=== PATIENT | male | born 1990 | race Caucasian/White ===

== ENCOUNTER 2025-03-01 08:58 | Outpatient (AMB) | payer OTHER, SELFPAY ==
--- NOTE | 2025-03-01 09:11 | MHC.PC.OV ---
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 Accompanied by: Self / Same As Patient Allergies No Known Allergies Allergy (Verified 03/01/25 09:32) Medication List - Last Reconciled 03/01/25 by Yuliana Krishnan PA-C No Known Home Meds Tobacco use date assessed: 03/01/25 Dental Screening Dental Screen Date: 03/01/25 Did you have a dental visit in the last 12 months?: No Did you have a dental problem in the last 6 months where you did not have access to dental care?: No HPI establish care HPI Details 34-year-old male with no significant past medical history or surgical history who was not on any medications presenting to the primary care clinic for his 1st appointment to establish a new primary care and for an annual physical examination. He reports he has not seen a primary care in quite some time since he was younger or before [facility]. He denies any acute complaints. Reports that he will be traveling to [facility] later this month and would like something for motion sickness. He reports that he takes Dramamine without any symptomatic relief. He would like to try something that he has not taken in the past. Patient reports his mother has autoimmune disorder Sjogren's disease. Maternal grandmother had rheumatoid arthritis. Patient reports father has hyperlipidemia. Patient reports paternal grandfather with some type of bone cancer he believes it might be bone marrow cancer but it was in his leg and then he had a stroke shortly after the and years ago. Patient reports maternal grandfather has type 2 diabetes, hyperlipidemia. Patient would like to be tested for diabetes, autoimmune disorder, elevated cholesterol levels. He denies any family history of colon cancer, breast cancer prostate cancer. He denies any chest pain, shortness of breath with lying down flat or any activity, abdominal pain, nausea vomiting, diarrhea, unintentional weight gain or weight loss, black or bloody stools, leg swelling or any other symptoms complaints or concerns at this time. [facility] Medical History (Updated 03/01/25 @ 10:23 by Yuliana Krishnan PA-C) Annual physical exam Obesity with body mass index (BMI) of 30.0 to 39.9 Family history of diabetes mellitus Family history of Sjogren disease Establishing care with new doctor, encounter for Family History Father High cholesterol Mother High cholesterol H/O Sjogren's disease Paternal Grandfather Bone cancer Cerebellar stroke High cholesterol Maternal Grandmother Rheumatoid arthritis Maternal Grandfather Type 2 diabetes mellitus High cholesterol Social History Housing: House Alcohol intake: current Alcohol intake frequency: a few times a week Patient Tobacco Use Status: Never used Tobacco service: No Current occupational status: employed Cognitive needs: No Hearing needs: No Vision needs: Yes (rx glasses) Questionnaire PHQ-9 Over the last 2 weeks, how often have you been bothered by any of the following problems? 1. Little interest or pleasure in doing things: not at all 2. Feeling down, depressed, or hopeless: not at all 3. Trouble falling or staying asleep, or sleeping too much: not at all 4. Feeling tired or having little energy: not at all 5. Poor appetite or overeating: not at all 6. Feeling bad about yourself - or that you are a failure or have let yourself or your family down: not at all 7. Trouble concentrating on things, such as reading the newspaper or watching television: not at all 8. Moving or speaking so slowly that other people could have noticed. Or the opposite - being so fidgety or restless that you have been moving around a lot more than usual: not at all 9. Thoughts that you would be better off or of hurting yourself in some way: not at all Total score: 0 Depression Screening Interpretation: Negative Depression Screening Done: Yes 42613 - PHQ-9 Billing: Yes Source: Developed by Drs. Max Friedman, Paulina Wills, Gabriel Lorenz and colleagues, with an educational daija from [employer]. Thrive Questionnaire Date Thrive assessed: 03/01/25 I am a: Patient What is your living situation today?: I have a steady place to live Within the past 12 months, did the food you bought not last and you didn't have the money to get more?: Never true Within the past 12 months, did you worry whether your food would run out before you got money to buy more?: Never true Do you have trouble paying for medicines?: No Do you have trouble getting transportation to medical appointments?: No Do you have trouble paying your heating and electricity bill?: No Do you have trouble taking care of your child, family member or friend?: No Do you have trouble with day-to-day activities such as bathing, preparing meals, shopping, managing finances, etc.?: No Are you currently unemployed and looking for a job?: No Are you interested in more education?: No Please select the resources that you would like help with: None THRIVE Score: 0 AUDIT C Alcohol Use Questionnaire (AUDIT-C) 1. How often do you have a drink containing alcohol?: 4 or more times a week 2. How many drinks containing alcohol do you have on a typical day when you are drinking?: 1 or 2 3. How often do you have six or more drinks on one occasion?: Never Total Score: 4 Score Reviewed/Action Taken: No AMANDA-7 AMB Questionnaire AMANDA-7 Date AMANDA - 7 assessed: 03/01/25 Feeling nervous, anxious, or on edge: 0 = Not at all Not being able to stop or control worryin = Not at all Worrying too much about different things: 0 = Not at all Trouble relaxin = Not at all Being so restless that it is hard to sit still: 0 = Not at all Becoming easily annoyed or irritable: 0 = Not at all Feeling afraid as if something awful might happen: 0 = Not at all Total AMANDA-7 score (0-4 normal; 5-9 mild; 10-14 moderate; 15-21 severe): 0 Source: Developed by Drs. Max Friedman, Paulina Wills, Gabriel Lorenz and colleagues, with an educational daija from [employer]. AMANDA-7 Assessment Billing AMANDA-7 Assessment Tool: AMANDA-7 Assessment 85474 Review of Systems Const All systems reviewed & are unremarkable except as noted in HPI and below Physical exam (Primary Care) Vital Signs: Last Vital Signs Temp 97.6 F 03/01/25 09:14 Pulse 66 03/01/25 09:14 Resp 12 03/01/25 09:14 BP 137/84 06/10/25 09:14 Pulse Ox 99 03/01/25 09:14 Oxygen Delivery Method Room Air 03/01/25 09:14 Care Plan Goal for BP management: <140/90 at Goal BMI result Body Mass Index 30.5 BMI Assessment/Plan discussion: High BMI High, discussed plan: lifestyle, weight reduction, dietary, physical activity and alcohol moderation Tobacco/Smoking Status: Tobacco use Status Tobacco use date assessed 03/01/25 03/01/25 09:24 Patient Tobacco Use Status Never used Tobacco 03/01/25 09:24 PHQ-9: PHQ-9 Score PHQ-9: Total score 0 03/01/25 09:24 Depression Screening Interpretation: Negative Thrive Assessment: Date of Thrive Assessment Date Thrive assessed 03/01/25 03/01/25 09:24 Const Other: Appearance: Alert. Oriented X3. No acute distress. Head: Normal external exam. Normocephalic. Atraumatic. Eyes: Pupils are equal, round, and reactive to light. Extraocular movements intact. Conjunctiva and sclera normal. Eyelids normal. Ears: Right ear pain noted. External auditory canal normal. Tympanic membranes normal. Throat: Pharynx normal. Uvula midline. Moist mucous membranes. Neck: Normal inspection. Neck supple. Full range of motion. No adenopathy. Thyroid Normal. No meningeal signs. No neck mass noted. Cardiovascular: Normal heart rate and rhythm. Heart sound normal. No murmurs noted. Pulses normal throughout. Respiratory: No respiratory distress. Painless inspiration. Breath sounds normal. No wheezes/rales/rhonchi noted. Chest nontender. No accessory muscle usage noted or decreased air movement noted. Abdomen: Soft and nontender. Bowel sounds normal in all 4 quadrants. No distention noted. No organomegaly noted. No visible injury noted. Back: No costovertebral angle tenderness. Full range of motion noted. Skin: Skin warm and dry. Normal skin color. Normal skin turgor. No rashes/lesions/lacerations noted. Reports itchiness without rash. Extremities: No lower extremity edema. Extremities exhibit normal range of motion. Extremities nontender. Neuro: Oriented X 3. No motor deficit. No sensory deficit. Reflexes normal. Coding Level of Care Code Est Pt Level 4 (61803) New Pt Prev Care 18-39yr(60109 Diagnoses Establishing care with new doctor, encounter for Z76.89 Family history of Sjogren disease Z82.69 Family history of diabetes mellitus Z83.3 Obesity with body mass index (BMI) of 30.0 to 39.9 E66.9 Annual physical exam Z00.00 Additional Codes PHQ-9 - 79255 - PHQ-9 Billing: Yes ([id number]) AMANDA-7 Assessment Billing - AMANDA-7 Assessment Tool: AMANDA-7 Assessment 19263 ([id number]) Assessment & Plan Assessment & Plan (1) Establishing care with new doctor, encounter for: Code(s): Z76.89 - Persons encountering health services in other specified circumstances Category: Medical Plan: Patient denies any acute complaints. Would like to be tested for diabetes, elevated cholesterol due to family history and autoimmune disorders due to family history. Requesting medication for motion sickness. Currently on no medications no past medical history or surgical history. Denies any smoking or any drug usage. Drinks socially. (2) Family history of Sjogren disease: Code(s): Z82.69 - Family history of other diseases of the musculoskeletal system and connective tissue Category: Medical Plan: Will assess for autoimmune disorder which includes rheumatoid arthritis and SAULO. Will reassess. (3) Family history of diabetes mellitus: Code(s): Z83.3 - Family history of diabetes mellitus Category: Medical Plan: Will assess for diabetes with an A1c level. Will reassess (4) Obesity with body mass index (BMI) of 30.0 to 39.9: Code(s): E66.9 - Obesity, unspecified Category: Medical Plan: Patient to improve diet and exercise regimen. Condition is chronic and stable continue to monitor. (5) Annual physical exam: Code(s): Z00.00 - Encounter for general adult medical examination without abnormal findings Category: Medical Plan: Normal annual physical examination Plan Patient to have fasting labs Patient to return in 1 year Orders: Orders C Reactive Protein Today Z00.00 - Encounter for general adult medical examination without abnormal findings Complete Blood Count Auto Diff Today Z00.00 - Encounter for general adult medical examination without abnormal findings Comprehensive [place]. Panel Fast Today Z00.00 - Encounter for general adult medical examination without abnormal findings Lipid Panel Today Z00.00 - Encounter for general adult medical examination without abnormal findings Vitamin D 25-OH Total Today Z00.00 - Encounter for general adult medical examination without abnormal findings TSH reflex Free T4 Today Z00.00 - Encounter for general adult medical examination without abnormal findings Hemoglobin A1c Today Z00.00 - Encounter for general adult medical examination without abnormal findings Rheumatoid Factor Today Z82.69 - Family history of other diseases of the musculoskeletal system and connective tissue Liver Panel Today Z00.00 - Encounter for general adult medical examination without abnormal findings Magnesium Today Z00.00 - Encounter for general adult medical examination without abnormal findings Vitamin B12 and Folate Today Z00.00 - Encounter for general adult medical examination without abnormal findings PSA,Total (Free>4and<10) Today Z00.00 - Encounter for general adult medical examination without abnormal findings SAULO Reflex Titer and Pattern Today Z82.69 - Family history of other diseases of the musculoskeletal system and connective tissue Medications: New ondansetron 4 mg PO Q8H PRN 90 tabs 1RF nausea and vomiting meclizine 50 mg (2 x 25 mg) PO DAILY PRN 90 tabs 1RF motion sickness Patient Instructions: Patient to have fasting labs. Patient to return in 1 year.
[2025-03-01 09:14] VITALS: BP 137/84; PULSE 66; RESP 12; TEMP 36.4; O2SAT 99; BMI 30.5
== END 2025-03-01 09:48 | disposition home or self-care (01) ==
LOC: HO.HMCSH 08:58
PROVIDERS: PCP Internal Medicine; Visit Provider Physician Assistant Medical
DX: Z00.00 Encounter for general adult medical examination without abnormal findings (principal); E66.9 Obesity, unspecified; Z68.30 Body mass index [BMI] 30.0-30.9, adult; Z76.89 Persons encountering health services in other specified circumstances; Z82.69 Family history of other diseases of the musculoskeletal system and connective tissue; Z83.3 Family history of diabetes mellitus

== ENCOUNTER → 2025-03-01 08:58 | Outpatient (BNVA) | payer OTHER, SELFPAY | PROVIDERS: PCP Internal Medicine; Visit Provider Physician Assistant Medical | DX: Z00.00 Encounter for general adult medical examination without abnormal findings (principal); Z76.89 Persons encountering health services in other specified circumstances; E66.9 Obesity, unspecified; Z68.30 Body mass index [BMI] 30.0-30.9, adult; Z82.69 Family history of other diseases of the musculoskeletal system and connective tissue; Z83.3 Family history of diabetes mellitus; Z13.31 Encounter for screening for depression; Z13.30 Encounter for screening examination for mental health and behavioral disorders, unspecified | CPT/HCPCS: 96127 ==

== ENCOUNTER 2025-03-04 08:55 | Outpatient (REF) | payer OTHER, SELFPAY ==
[2025-03-04 09:12] LABS: MANUAL DIFF FLAG NO
[2025-03-04 09:42] LABS: Basophils Percent Auto 0.7 % (0-2); Eosinophils Absolute Auto 0.1 X10*3/uL (0.0-0.4); Eosinophils Percent Auto 1.4 % (0-4); Hemoglobin 15.1 g/dl (14.0-18.0); Imm Gran Abs Auto 0.01 X10*3/uL (0.00-0.03); Imm Gran Pct Auto 0.2 % (0.0-0.4); Lymphocytes Absolute Auto 1.8 X10*3/uL (1.2-4.9); Mean Corpuscular HGB Conc 34.3 g/dl (31.0-36.0); Mean Corpuscular Hemoglobin 30.3 pg (27.0-33.0); Mean Corpuscular Volume 88.4 fL (80.0-98.0); Mean Platelet Volume 9.4 fL (9.4-12.4); Monocytes Absolute Auto 0.3 X10*3/uL (0.1-1.2); Neutrophils Absolute Auto 1.9 x10*3/uL (2.0-8.3); Neutrophils Percent Auto 46.7 % (45-73); Platelet Count 242 X10*3/uL (160-400); Red Blood Count 4.98 X10*6/uL (4.60-5.80); Red Cell Distribution Width 12.2 % (11.0-16.0); White Blood Count 4.1 X10*3/uL (4.8-10.8)
[2025-03-04 09:49] LABS: Estimated Average Glucose 103 mg/dL; Hemoglobin A1c % 5.2 % (<6.0); Total Hemoglobin (HGBA1C) 3891.1997 umol/L
[2025-03-04 10:52] LABS: Alanine Aminotransferase 26 U/L (0-40); Albumin Level 5.2 g/dL (3.5-5.0); Alkaline Phosphatase 64 U/L (39-117); Anion Gap 12 (12-20); Aspartate Amino Transferase 29 U/L (5-37); Bilirubin Direct 0.1 mg/dL (0.0-0.5); Bilirubin Total 0.5 mg/dL (0.0-1.0); Blood Urea Nitrogen 13 mg/dL (9-16); C Reactive Protein < 0.10 mg/dL (< or = 0.50); Calcium 10.1 mg/dL (8.4-10.2); Carbon Dioxide 28 mmol/L (22-29); Chloride 103 mmol/L (96-108); Cholesterol 253 mg/dL (<200); Estimated Glomerular Filt Rate > 60; Glucose Fasting 104 mg/dL (60-99); HDL Cholesterol 32 mg/dL (>40); Magnesium 2.1 mg/dL (1.6-2.6); Potassium 4.3 mmol/L (3.3-5.1); Sodium 139 mmol/L (135-145); Total Protein 7.5 g/dL (6.5-8.0); Triglycerides 419 mg/dL (<150)
[2025-03-04 10:53] LABS: Rheumatoid Factor < 13.0 IU/mL (<15.0)
[2025-03-04 10:58] LABS: PSA,Total (Free>4and<10) 0.74 ng/mL (0.00-4.00)
[2025-03-04 11:15] LABS: Folate 7.5 ng/mL (> or = 4.0); Vitamin B12 327 pg/mL (200-900)
[2025-03-04 11:16] LABS: Vitamin D 25-OH Total 26.6 ng/mL (>30)
[2025-03-10 11:49] LABS: ANA Pattern 2 Nuclear, Speckled; ANA Titer 2 1:40 titer; Anti Nuclear Antibody Screen POSITIVE (NEGATIVE); Anti Nuclear Antibody Titer 1:40 titer
== END 2025-03-04 08:56 | disposition home or self-care (01) ==
LOC: HO.LAB 08:55
PROVIDERS: PCP Internal Medicine; Visit Provider Physician Assistant Medical
DX: Z00.00 Encounter for general adult medical examination without abnormal findings (principal); Z12.5 Encounter for screening for malignant neoplasm of prostate; Z13.1 Encounter for screening for diabetes mellitus; Z13.6 Encounter for screening for cardiovascular disorders; Z82.69 Family history of other diseases of the musculoskeletal system and connective tissue
CPT/HCPCS: 36415; 80053; 80061; 80076; 82248; 82306; 82607; 82746; 83036; 83735; 84153; 84443; 85025; 86038; 86039; 86140; 86431